=== PATIENT | male | born 1955 | race Caucasian/White ===

== ENCOUNTER 2019-04-30 14:46 | Emergency (ER) | payer OTHER ==
[~2019-04-30] VITALS: Ht 170.2 cm; Wt 94.4 kg
[2019-04-30 15:25] VITALS: BP 108/72
== END 2019-04-30 16:26 | disposition home or self-care (01) ==
LOC: ED 16:15
DX: S96.911A Strain of unspecified muscle and tendon at ankle and foot level, right foot, initial encounter (principal); G89.29 Other chronic pain; M54.5 Low back pain; W18.49XA Other slipping, tripping and stumbling without falling, initial encounter; Y93.01 Activity, walking, marching and hiking; Y92.488 Other paved roadways as the place of occurrence of the external cause; Y99.8 Other external cause status
CPT/HCPCS: 99283

== ENCOUNTER 2019-07-17 18:25 | Inpatient (IN) | payer MEDICARE ==
[~2019-07-17] VITALS: Ht 170.2 cm; Wt 96.8 kg
[2019-07-17] MEDS ORDERED: SODIUM CHLORIDE FLUSH 10ML SYR IVF ONE ×2 (19:00→19:30)
[2019-07-17] MEDS ORDERED: ONDANSETRON 2MG/ML, 2ML IVPush ONE (19:00)
[2019-07-17] MEDS ORDERED: MORPHINE SULFATE 4 MG/ML, 1ML IVPush PRN (19:00)
[2019-07-17 19:06] LABS: BASOPHILS # (AUTO) 0.14 x10^3/uL (0-0.1); BASOPHILS % (AUTO) 1 % (0-1); EOSINOPHILS # (AUTO) 0.62 x10^3/uL (0-0.4); EOSINOPHILS % (AUTO) 6 % (1-7); LYMPHOCYTES # (AUTO) 2.09 x10^3/uL (1-3.4); LYMPHOCYTES % (AUTO) 20 % (22-44); MD NO; MEAN CORPUSCULAR HGB CONC 32.9 g/dL (33.2-36.2); MEAN CORPUSCULAR VOLUME 91.2 fL (81-97); MEAN PLATELET VOLUME 8.9 fL (7.4-10.4); MONOCYTES # (AUTO) 1.02 x10^3/uL (0.2-0.8); MONOCYTES % (AUTO) 10 % (2-9); NEUTROPHILS # (AUTO) 6.87 x10^3/uL (1.8-6.8); NEUTROPHILS % (AUTO) 64 % (42-75); PLATELET COUNT 243 x10^3/uL (130-400); RED CELL DISTRIBUTION WIDTH 16.7 % (9.4-14.8)
[2019-07-17] MEDS ORDERED: ONDANSETRON 2MG/ML, 2ML ONE (19:09)
[2019-07-17] MEDS ORDERED: MORPHINE SULFATE 4 MG/ML, 1ML ONE (19:09)
[2019-07-17 19:17] LABS: ALANINE AMINOTRANSFERASE 17 U/L (12-78); ALBUMIN 4.1 g/dL (3.4-5.0); ANION GAP 7 mmol/L (5-15); CALCIUM 8.7 mg/dL (8.5-10.1); CHLORIDE 107 mmol/L (98-107); CREATININE 3.42 mg/dL (0.7-1.3)
[2019-07-17 19:19] LABS: ALKALINE PHOSPHATASE 64 U/L (45-117); BILIRUBIN,TOTAL 0.3 mg/dL (0.2-1.0); TOTAL PROTEIN 7.6 g/dL (6.4-8.2)
[2019-07-17] MEDS ORDERED: SODIUM CHLORIDE 0.9% 1,000ML IVBOLUS ONE (19:30)
[2019-07-17] MEDS ORDERED: CALCIUM CHLORIDE 10%, 10ML SYR IVPush ONE (19:30)
[2019-07-17] MEDS ORDERED: DEXTROSE 50%, 50ML SYRINGE IVPush ONE (19:30)
[2019-07-17] MEDS ORDERED: INSULIN REGULAR 100 UNITS/ML, 3ML VIAL IVPush ONE (19:30)
[2019-07-17] MEDS ORDERED: SODIUM BICARB 8.4%, 50ML SYRINGE IVPush ONE (19:30)
[2019-07-17] MEDS ORDERED: SODIUM CHLORIDE 0.9% 1,000 ML IV SCH (21:18)
[2019-07-17] MEDS ORDERED: DOCUSATE 100 MG CAPSULE PO PRN (21:30)
[2019-07-17] MEDS ORDERED: BISACODYL 10 MG SUPP PR PRN (21:30)
[2019-07-17] MEDS ORDERED: ACETAMINOPHEN 325 MG TABLET PO PRN (21:30)
[2019-07-17] MEDS ORDERED: POLYETHYLENE GLYCOL 17 GM PACKET PO PRN (21:30)
[2019-07-17 21:56] VITALS: BP 105/69
[2019-07-17 22:01] LABS: TROPONIN I < 0.015 ng/mL (0.000-0.045)
[2019-07-17] MEDS: HEPARIN 5,000 UNITS/ML, 1ML SQ SCH (22:37)
[2019-07-17 23:05] LABS: MICROSCOPIC AUTO
[2019-07-17 23:06] LABS: CULTURE INDICATED? NO
[2019-07-17 23:17] LABS: AMPHETAMINE SCREEN, URINE Negative (Negative); BARBITURATE SCREEN, URINE Negative (Negative); BENZODIAZEPINE SCREEN, URINE Negative (Negative); CANNABINOID SCREEN, URINE Negative (Negative); COCAINE SCREEN, URINE Negative (Negative); METHADONE SCREEN, URINE Negative (Negative); OPIATE SCREEN, URINE Positive (Negative)
[2019-07-18] MEDS ORDERED: LORazepam 2 MG/ML, 1ML IVPush PRN (02:00)
[2019-07-18 02:01] VITALS: BP 119/80
[2019-07-18 03:45] LABS: BASOPHILS # (AUTO) 0.11 x10^3/uL (0-0.1); BASOPHILS % (AUTO) 1 % (0-1); EOSINOPHILS # (AUTO) 0.48 x10^3/uL (0-0.4); EOSINOPHILS % (AUTO) 6 % (1-7); LYMPHOCYTES % (AUTO) 22 % (22-44); MD NO; MEAN CORPUSCULAR HEMOGLOBIN 30.2 pg (27.5-34.5); MEAN CORPUSCULAR HGB CONC 32.5 g/dL (33.2-36.2); MEAN CORPUSCULAR VOLUME 92.8 fL (81-97); MONOCYTES # (AUTO) 0.85 x10^3/uL (0.2-0.8); MONOCYTES % (AUTO) 10 % (2-9); NEUTROPHILS # (AUTO) 5.37 x10^3/uL (1.8-6.8); NEUTROPHILS % (AUTO) 62 % (42-75); PLATELET COUNT 205 x10^3/uL (130-400); RED BLOOD COUNT 3.76 x10^6/uL (4.38-5.82); RED CELL DISTRIBUTION WIDTH 16.5 % (9.4-14.8)
[2019-07-18 03:50] LABS: ALANINE AMINOTRANSFERASE 16 U/L (12-78); ALBUMIN 3.6 g/dL (3.4-5.0); ANION GAP 5 mmol/L (5-15); CHLORIDE 111 mmol/L (98-107); CREATININE 2.49 mg/dL (0.7-1.3)
[2019-07-18 03:55] LABS: ALKALINE PHOSPHATASE 62 U/L (45-117); BILIRUBIN,TOTAL 0.3 mg/dL (0.2-1.0); TOTAL PROTEIN 6.8 g/dL (6.4-8.2); TROPONIN I < 0.015 ng/mL (0.000-0.045)
[2019-07-18] MEDS: HEPARIN 5,000 UNITS/ML, 1ML SQ SCH ×3 (05:56→21:00)
[2019-07-18 07:00] VITALS: BP 128/82
[2019-07-18] MEDS ORDERED: TAMS-11 PO (09:08)
[2019-07-18] MEDS ORDERED: FLUT9.9S NAS (09:08)
[2019-07-18] MEDS ORDERED: OMEP40CA42 PO (09:08)
[2019-07-18] MEDS ORDERED: LORazepam 2 MG/ML, 1ML IV PRN ×4 (09:30)
[2019-07-18] MEDS ORDERED: ALBUTEROL SULFATE 2.5 MG/3 ML NPPB PRN (09:30)
[2019-07-18] MEDS: CHLORDIAZEPOXIDE 25 MG CAPSULE PO SCH ×3 (09:35→21:00)
[2019-07-18] MEDS: TAMSULOSIN 0.4 MG CAP.ER.24H PO SCH (09:35)
[2019-07-18] MEDS: PANTOPRAZOLE 40 MG IV IVPush SCH (09:37)
[2019-07-18] MEDS: POTASSIUM CHLORIDE 20 MEQ, MAGNESIUM SULFATE 1 GM, MVI ADULT 10 ML, THIAMINE 200 MG, FO... IV SCH (09:37)
[2019-07-18 12:20] VITALS: BP 119/80
[2019-07-18 18:47] VITALS: BP 149/95
[2019-07-19 01:06] VITALS: BP 143/90
[2019-07-19] MEDS: CHLORDIAZEPOXIDE 25 MG CAPSULE PO SCH ×2 (03:03→09:09)
[2019-07-19] MEDS: HEPARIN 5,000 UNITS/ML, 1ML SQ SCH ×2 (05:07→13:37)
[2019-07-19 06:26] LABS: ANION GAP 8 mmol/L (5-15); CALCIUM 9.6 mg/dL (8.5-10.1); CHLORIDE 108 mmol/L (98-107); CREATININE 1.11 mg/dL (0.7-1.3)
[2019-07-19] MEDS ORDERED: FLUT1AER INH (08:27)
[2019-07-19] MEDS ORDERED: METO-282 PO (08:27)
[2019-07-19] MEDS ORDERED: TIZA4TAB2 PO (08:27)
[2019-07-19] MEDS ORDERED: NIFE-7 PO (08:27)
[2019-07-19] MEDS ORDERED: ALBU8.5H8 INH (08:27)
[2019-07-19] MEDS ORDERED: MESA1.2T PO (08:27)
[2019-07-19] MEDS ORDERED: GABA300C10 PO (08:27)
[2019-07-19] MEDS ORDERED: OXYC10TA6 PO (08:27)
[2019-07-19] MEDS ORDERED: LISI40TA PO (08:27)
[2019-07-19 08:41] VITALS: BP 149/97
[2019-07-19] MEDS: TAMSULOSIN 0.4 MG CAP.ER.24H PO SCH (09:01)
[2019-07-19] MEDS: PANTOPRAZOLE 40 MG IV IVPush SCH (09:01)
[2019-07-19] MEDS: POTASSIUM CHLORIDE 20 MEQ, MAGNESIUM SULFATE 1 GM, MVI ADULT 10 ML, THIAMINE 200 MG, FO... IV SCH (11:12)
[2019-07-19] MEDS ORDERED: TEMPLATE NON-FORMULARY MED. (Albuterol Sulfate (Proair Hfa) 2 PUFF) INH PRN (12:00)
[2019-07-19] MEDS ORDERED: TIZANIDINE 4MG TABLET PO PRN (12:00)
[2019-07-19] MEDS ORDERED: ALBUTEROL SULFATE 2.5 MG/3 ML NPPB SCH (12:00)
[2019-07-19] MEDS ORDERED: ALBUTEROL SULFATE 2.5 MG/3 ML NPPB PRN (12:00)
[2019-07-19] MEDS ORDERED: OXYcodone IR 5MG TABLET PO PRN (12:00)
[2019-07-19] MEDS: ALBUTEROL SULFATE 2.5 MG/3 ML NPPB SCH ×2 (12:08→14:05)
[2019-07-19 14:05] VITALS: BP 152/92
[2019-07-19] MEDS ORDERED: GABAPENTIN 300 MG CAPSULE PO SCH (16:00)
[2019-07-19] MEDS ORDERED: MESALAMINE 1.2 GM TABLET.DR PO SCH (21:00)
[2019-07-19] MEDS ORDERED: BUDESONIDE 0.5 MG/2 ML INHA NPPB SCH (21:00)
[2019-07-20] MEDS ORDERED: OMEPRAZOLE 20 MG CAPSULE.DR PO SCH (07:00)
[2019-07-20] MEDS ORDERED: LISINOPRIL 40 MG TABLET PO SCH (09:00)
[2019-07-20] MEDS ORDERED: niFEDipine ER 30 MG TABLET.ER PO SCH (09:00)
[2019-07-20] MEDS ORDERED: METOPROLOL SUCCINATE 25 MG TAB.ER.24H PO SCH (09:00)
[2019-07-20] MEDS ORDERED: TEMPLATE NON-FORMULARY MED. (Fluticasone/Vilanterol (Breo Ellipta 100-25 Mcg Inh) 1 PUFF) INH SCH (09:00)
== END 2019-07-19 16:16 | disposition home or self-care (01) | DRG 391 ==
LOC: ED 19:05 → EDIP 20:37 → 4WST 21:48
PROVIDERS: ADMIT Internal Medicine; ATTEND Hospitalist
DX: K21.9 Gastro-esophageal reflux disease without esophagitis (principal); N17.0 Acute kidney failure with tubular necrosis; E87.1 Hypo-osmolality and hyponatremia; F10.239 Alcohol dependence with withdrawal, unspecified; I12.9 Hypertensive chronic kidney disease with stage 1 through stage 4 chronic kidney disease, or unspecified chronic kidney disease; D64.9 Anemia, unspecified; E87.5 Hyperkalemia; F12.90 Cannabis use, unspecified, uncomplicated; G89.4 Chronic pain syndrome; J44.9 Chronic obstructive pulmonary disease, unspecified; I95.9 Hypotension, unspecified; N18.9 Chronic kidney disease, unspecified; N40.0 Benign prostatic hyperplasia without lower urinary tract symptoms; Z87.891 Personal history of nicotine dependence; Z98.1 Arthrodesis status; Z86.19 Personal history of other infectious and parasitic diseases
CPT/HCPCS: 36415; 70450; 74176; 80048; 80053; 80307; 81001; 82607; 83690; 83735; 84100; 84132; 84443; 84484; 85025; 93005; 96374; 96375; G0378; J1644; J1815; J2405; J3411; J3475; J3480; C9113; J2060; J2270; J7030